=== PATIENT | male | born 1980 | race African-American/Black ===

== ENCOUNTER 2017-09-04 12:23 | Emergency (ER) | payer OTHER ==
[~2017-09-04] VITALS: Ht 193 cm; Wt 142.0 kg
[~2017-09-04 12:23] MED LIST: ACET-1256 PO; AZAT50TA17 PO; BUPR-83 PO; BUSP-8 PO; CAPS0.022 TOP; CLBPO15 TOP; CLON0.1T12 PO; DIPH50TA10 PO; DPRSCR15 TOP; FERR1TAB13 PO; MINEOIL PO; MULTTAB94 PO; PARO1TAB27 PO; PEGSOL PO; PNT500 PO; PRAZ5CAP2 PO; PRLSR20 PO; QUET1TAB34 PO; SULF800T23 PO
[2017-09-04 12:43] VITALS: TEMP 36.9; Ht 193 cm; Wt 142.0 kg
[2017-09-04] MEDS ORDERED: ONDANSETRON INJ 2 MG/ML 2 ML VIAL IV STA (13:06)
[2017-09-04] MEDS ORDERED: SODIUM CHLORIDE 0.9% 1000ML 1,000 ML IV STA (13:06)
[2017-09-04 13:52] LABS: BASO % 0.2 %; BASO ABS # 0.01 K/uL (0-0.2); EOS % 0.6 %; EOS ABS # 0.03 K/uL (0-0.5); HEMATOCRIT 37.1 % (42-52); HEMOGLOBIN 12.4 g/dL (14.0-18.0); IG# 0.01 K/uL (0.00-0.02); LYMPH % 9.9 %; MEAN CELL VOLUME 84.9 fL (80-100); MEAN CORPUSCULAR HEMOGLOBIN 28.4 pg (25-34); MEAN CORPUSCULAR HGB CONC 33.4 g/dl (32-36); MEAN PLATELET VOLUME 10.5 fL (7.4-10.4); MONO % 8.7 %; MONO ABS # 0.44 K/uL (0.11-0.59); NEUT % 80.4 %; NEUT ABS # 4.05 K/uL (1.4-6.5); PLATELET COUNT 203 K/uL (130-400); RED CELL DISTRIBUTION WIDTH CV 14.5 % (11.5-14.5); RED CELL DISTRIBUTION WIDTH SD 45.1 fL (36.4-46.3); WHITE BLOOD COUNT 5.04 K/uL (4.8-10.8)
[2017-09-04 14:09] LABS: ALBUMIN 3.4 gm/dl (3.4-5.0); CALCIUM 8.8 mg/dl (8.5-10.1); CREATININE 1.05 mg/dl (0.60-1.40); POTASSIUM 4.4 mmol/L (3.5-5.1)
--- NOTE | 2017-09-04 14:10 | DIAGNOSTIC IMAGING REPORT ---
ABDOMEN AND PELVIS CT WITHOUT CONTRAST CT DOSE: 999.85 mGy.cm HISTORY: Generalized abdominal pain. Crohn's disease. TECHNIQUE: Multiaxial CT images of the abdomen and pelvis were performed without contrast. A dose lowering technique was utilized adhering to the principles of ALARA. COMPARISON STUDY: Small bowel follow-through 08/15/2015. FINDINGS: The lung bases are clear. No pneumoperitoneum. No pneumatosis. Mild irregularity and sclerosis at the sacroiliac joints consistent with a mild sacroiliitis. Evidence for prior midline incision. There is a short segment of bowel located between the lower rectus abdominis muscles. However, there is no evidence for hernia. The unenhanced liver, spleen, gallbladder, pancreas, adrenal glands, gallbladder, and kidneys are unremarkable. No renal stones or hydronephrosis. Subcentimeter retroperitoneal and mesenteric lymph nodes do not meet CT criteria for pathologic involvement. Suboptimal evaluation for bowel pathology due to the lack of intravenous and oral contrast. However, no evidence for bowel obstruction. Normal bladder. Postoperative changes consistent with prior ileocecectomy. There is a side to end anastomosis identified at the distal ileum. The distal ileum both proximal and distal to the anastomosis with the colon is mildly thickened. The total length of bowel wall thickening is approximately 20 cm of distal ileum. Findings are consistent with an ileitis consistent with active Crohn's disease given the patient's history. No abscess or perforation identified. IMPRESSION: 1. Mild thickening involving the distal 20 cm of the ileum consistent with an ileitis given the patient's history of Crohn's disease. No perforation or abscess identified. Postoperative changes as described above. 2. No evidence for bowel obstruction. 3. No renal or ureteral stones. No hydronephrosis. 4. Mild bilateral sacroiliitis. Electronically signed by: Aleksandar Dawkins M.D. 09/04/2017 2:09 PM Dictated Date/Time: 09/04/2017 1:57 PM
[2017-09-04 14:12] LABS: TOTAL PROTEIN 7.4 gm/dl (6.4-8.2)
--- NOTE | 2017-09-04 14:30 | EMERGENCY ROOM VISIT NOTE ---
History Report prepared by Ada: Manuel Winters Under the Supervision of: Dr. Gal Curry D.O. First contact with patient: 12:48 Chief Complaint: VOMITING Stated Complaint: VOMITING BLOOD, NAUSEA, ABD PAIN History of Present Illness The patient is a 36 year old male with a history of Crohn's disease who presents to the Emergency Room from the [facility] with complaints of episodes of vomiting that started this morning. He states that he felt like his Crohn's was hyperactive a lot yesterday, with some left-sided abdominal pain. The patient says that about 2 hours after eating breakfast this morning, he vomited up all his food, and after he vomited everything, he kept dry heaving. He describes his vomit as bile mixed with stripes of blood. He says that he has been persistently nauseated ever since then, and was unable to really eat much of anything at lunch. The patient was then brought here for concerns of a bowel obstruction. He notes a history of a bowel obstruction. He says that he is still currently nauseated with some abdominal pain. He notes that this pain is what he gets periodically with his Crohn's. The patient adds that his last bowel movement was this morning and it was "in between normal and diarrhea". Source of History: patient Onset: This morning Position: other (global) Symptom Intensity: with stripes of blood Quality: other (vomiting) Timing: other (episodes) Associated Symptoms: + nausea, + abdominal pain Note: Associated symptoms: Not able to eat much. Review of Systems See HPI for pertinent positives & negatives. A total of 10 systems reviewed and were otherwise negative. Past Medical & Surgical Medical Problems: (1) Crohns disease Crohns disease No chronic problems Family History No pertinent family history Social History Smoking Status: Never Smoker Drug Use: none Marital Status: Occupation Status: other Current/Historical Medications Scheduled Acetaminophen (Tylenol), 1,000 MG PO BID Azathioprine (Imuran), 3 TABS PO DAILY Betamethasone Dip (Betamethasone Dipropionat), 1 APPLN TOP BID Bupropion (Wellbutrin), 100 MG PO BID Buspirone Hcl (Buspirone Hcl), 2 TAB PO BID Capsaicin (Capsaicin), 1 APPLN TOP TID Clobetasol Propionate (Clobetasol Propionate), 1 APPLN TOP BID Clonidine Hcl (Catapres), 1 TAB PO BID Diphenhydramine Hcl (Sleep) (Diphenhydramine Hcl), 4 TAB PO HS Ferrous Sulfate (Kp Ferrous Sulfate), 1 TAB PO TID Mesalamine (Pentasa), 500 MG PO QID Mineral Oil (Mineral Oil Heavy), 2 OZ PO BID Multiple Vitamin (Stress Formula), 1 TAB PO QD Omeprazole (Prilosec), 20 MG PO BID Paroxetine (Paxil), 20 MG PO BID Peg 8436-Qwa-Oet Bicarb-Sod Ch (Peg-3350/Electrolytes), 1 TBS PO DAILY Prazosin Hcl (Prazosin), 1 CAP PO HS Quetiapine Fumarate (Seroquel), 100 MG PO QD Quetiapine Fumarate (Seroquel), 200 MG PO QHS Sulfa/Trimethoprim (Bactrim Ds 800MG/160MG), 1 TAB PO BID Allergies Uncoded Allergies: wool (Allergy, Mild, HIVES, 01/27/17) NSAID (Adverse Reaction, Unknown, GI SYMPTOMS, 01/27/17) Physical Exam Vital Signs Date Time Temp Pulse Resp B/P (MAP) Pulse Ox O2 Delivery O2 Flow Rate FiO2 09/04/17 14:24 70 18 132/75 95 Room Air 09/04/17 13:37 71 18 118/66 98 Room Air 09/04/17 12:43 36.9 84 20 124/86 96 Room Air Physical Exam CONSTITUTIONAL/VITAL SIGNS: Reviewed / noted above. GENERAL: Non-toxic in appearance. INTEGUMENTARY: Warm, dry, and [place]. HEAD: Normocephalic. EYES: without scleral icterus or trauma. ENT/OROPHARYNX: clear and moist. LYMPHADENOPATHY/NECK: Is supple without lymphadenopathy or meningismus. RESPIRATORY: Lungs clear and equal. CARDIOVASCULAR: Regular rate and rhythm. GI/ABDOMEN: Soft. Mild tenderness to palpation of the left lower and right lower quadrants. No organomegaly or pulsatile mass. No rebound or guarding. Normal bowel sounds. EXTREMITIES: Warm and well perfused. BACK: No CVA tenderness. NEUROLOGICAL: Intact without focal deficits. PSYCHIATRIC: normal affect. MUSCULOSKELETAL: Normally developed with good muscle tone. Medical Decision & Procedures ER Provider Diagnostic Interpretation: CT results as stated below per my review and radiologist interpretation: ABDOMEN AND PELVIS CT WITHOUT CONTRAST CT DOSE: 999.85 mGy.cm HISTORY: Generalized abdominal pain. Crohn's disease. TECHNIQUE: Multiaxial CT images of the abdomen and pelvis were performed without contrast. A dose lowering technique was utilized adhering to the principles of ALARA. COMPARISON STUDY: Small bowel follow-through 08/15/2015. FINDINGS: The lung bases are clear. No pneumoperitoneum. No pneumatosis. Mild irregularity and sclerosis at the sacroiliac joints consistent with a mild sacroiliitis. Evidence for prior midline incision. There is a short segment of bowel located between the lower rectus abdominis muscles. However, there is no evidence for hernia. The unenhanced liver, spleen, gallbladder, pancreas, adrenal glands, gallbladder, and kidneys are unremarkable. No renal stones or hydronephrosis. Subcentimeter retroperitoneal and mesenteric lymph nodes do not meet CT criteria for pathologic involvement. Suboptimal evaluation for bowel pathology due to the lack of intravenous and oral contrast. However, no evidence for bowel obstruction. Normal bladder. Postoperative changes consistent with prior ileocecectomy. There is a side to end anastomosis identified at the distal ileum. The distal ileum both proximal and distal to the anastomosis with the colon is mildly thickened. The total length of bowel wall thickening is approximately 20 cm of distal ileum. Findings are consistent with an ileitis consistent with active Crohn's disease given the patient's history. No abscess or perforation identified. IMPRESSION: 1. Mild thickening involving the distal 20 cm of the ileum consistent with an ileitis given the patient's history of Crohn's disease. No perforation or abscess identified. Postoperative changes as described above. 2. No evidence for bowel obstruction. 3. No renal or ureteral stones. No hydronephrosis. 4. Mild bilateral sacroiliitis. Electronically signed by: Aleksandar Dawkins M.D. 09/04/2017 2:09 PM Dictated Date/Time: 09/04/2017 1:57 PM Laboratory Results 09/04/17 13:30 Red Blood Count 4.37, Mean Corpuscular Volume 84.9, Mean Corpuscular Hemoglobin 28.4, Mean Corpuscular Hemoglobin Concent 33.4, Mean Platelet Volume 10.5, Neutrophils (%) (Auto) 80.4, Lymphocytes (%) (Auto) 9.9, Monocytes (%) (Auto) 8.7, Eosinophils (%) (Auto) 0.6, Basophils (%) (Auto) 0.2, Neutrophils # (Auto) 4.05, Lymphocytes # (Auto) 0.50, Monocytes # (Auto) 0.44, Eosinophils # (Auto) 0.03, Basophils # (Auto) 0.01 09/04/17 13:30 Test 09/04/17 12:49 09/04/17 13:30 Urine Color YELLOW Urine Appearance CLEAR (CLEAR) Urine pH 8.0 (4.5-7.5) Urine Specific [place] 1.012 (1.000-1.030) Urine Protein NEG (NEG) Urine Glucose (UA) NEG (NEG) Urine Ketones NEG (NEG) Urine Occult Blood NEG (NEG) Urine Nitrite NEG (NEG) Urine Bilirubin NEG (NEG) Urine Urobilinogen NEG (NEG) Urine Leukocyte Esterase NEG (NEG) Urine WBC (Auto) 1-5 /hpf (0-5) Urine RBC (Auto) 0-4 /hpf (0-4) Urine Hyaline Casts (Auto) 0 /lpf (0-5) Urine Epithelial Cells (Auto) 0-5 /lpf (0-5) Urine Bacteria (Auto) NEG (NEG) White Blood Count 5.04 K/uL (4.8-10.8) Red Blood Count 4.37 M/uL (4.7-6.1) Hemoglobin 12.4 g/dL (14.0-18.0) Hematocrit 37.1 % (42-52) Mean Corpuscular Volume 84.9 fL (80-100) Mean Corpuscular Hemoglobin 28.4 pg (25-34) Mean Corpuscular Hemoglobin Concent 33.4 g/dl (32-36) Platelet Count 203 K/uL (130-400) Mean Platelet Volume 10.5 fL (7.4-10.4) Neutrophils (%) (Auto) 80.4 % Lymphocytes (%) (Auto) 9.9 % Monocytes (%) (Auto) 8.7 % Eosinophils (%) (Auto) 0.6 % Basophils (%) (Auto) 0.2 % Neutrophils # (Auto) 4.05 K/uL (1.4-6.5) Lymphocytes # (Auto) 0.50 K/uL (1.2-3.4) Monocytes # (Auto) 0.44 K/uL (0.11-0.59) Eosinophils # (Auto) 0.03 K/uL (0-0.5) Basophils # (Auto) 0.01 K/uL (0-0.2) RDW Standard Deviation 45.1 fL (36.4-46.3) RDW Coefficient of Variation 14.5 % (11.5-14.5) Immature Granulocyte % (Auto) 0.2 % Immature Granulocyte # (Auto) 0.01 K/uL (0.00-0.02) Anion Gap 7.0 mmol/L (3-11) Est Creatinine Clear Calc Drug Dose 151.2 ml/min Estimated GFR () 106.1 Estimated GFR (Non- 91.5 BUN/Creatinine Ratio 14.6 (10-20) Calcium Level 8.8 mg/dl (8.5-10.1) Total Bilirubin 0.4 mg/dl (0.2-1) Direct Bilirubin 0.1 mg/dl (0-0.2) Aspartate Amino Transf (AST/SGOT) 76 U/L (15-37) Alanine Aminotransferase (ALT/SGPT) 73 U/L (12-78) Alkaline Phosphatase 55 U/L (45-117) Total Protein 7.4 gm/dl (6.4-8.2) Albumin 3.4 gm/dl (3.4-5.0) Lipase 235 U/L (73-393) Laboratory results as stated above per my review. Medications Administered Medications (Trade) Dose Ordered Sig/Sea Route Start Time Stop Time Status Last Admin Dose Admin Sodium Chloride 1,000 ml @ 999 mls/hr Q1H1M STAT IV 09/04/17 13:06 09/04/17 14:06 DC 09/04/17 13:33 999 MLS/HR Ondansetron HCl (Zofran Inj) 4 mg NOW STAT IV 09/04/17 13:06 09/04/17 13:07 DC 09/04/17 13:33 4 MG ED Course 1249: Previous medical records were reviewed. The patient was evaluated in room C12B. A complete history and physical examination was performed. 1306: Zofran Inj 4 mg IV, NSS 1000 ml @ 999 mls/hr IV. Medical Decision Differential diagnosis: Etiologies such as gastroenteritis, food borne illness, infections, appendicitis , diverticulitis, inflammatory bowel disease, obstruction, GI bleed, biliary pathology, as well as others were entertained. This is a 36-year-old male who presents to the ED with a chief complaint of abdominal pain. The patient has a history of Crohn's disease. He reported some hyperactive bowels this morning. Around 9 or 10 AM he had some nausea and vomiting after breakfast. He states that his last bowel movement was soft this morning. His lunch she had pizza and did not have much of an appetite. He reports some lower abdominal discomfort. His vital signs are normal. His physical exam revealed some tenderness to the lower abdomen. Blood work including a CBC and complete metabolic panel were unremarkable. Urine did not show infection. CT scan of the abdomen pelvis reveals a mild ileitis but otherwise no significant abnormalities. The patient is currently on medication for his Crohn's disease. He was told the results of the test. He is felt to be stable for discharge and outpatient follow-up. Medication Reconcilliation Current Medication List: was personally reviewed by me Blood Pressure Screening Patient's blood pressure: Normal blood pressure Impression Primary Impression: Vomiting Additional Impressions: Abdominal pain, lower Ileitis, terminal Scribe Attestation The scribe's documentation has been prepared under my direction and personally reviewed by me in its entirety. I confirm that the note above accurately reflects all work, treatment, procedures, and medical decision making performed by me. Departure Information Referrals Demond Gandara M.D. (PCP) Patient Instructions My [facility] Additional Instructions CAT scan reveals a mild ileitis. This could be related to her Crohn's disease. Talk to your GI specialist about this. Continue your current medications. Blood work and urinalysis were normal. Follow-up with your doctor for further care and evaluation in 1-2 days. Return to the emergency department for worsening or new symptoms or any concerns. You have been examined and treated today on an emergency basis only. This is not a substitute for, or an effort to provide, complete comprehensive medical care. It is impossible to recognize and treat all injuries or illnesses in a single emergency department visit. It is therefore important that you follow up closely with your doctor. Call as soon as possible for an appointment. Problem Qualifiers
[2017-09-04] MEDS ORDERED: DICY20TA10 PO (14:39)
[2017-09-04] MEDS ORDERED: [UNRECOGNIZED DRUG - CODE] PO (14:39)
[2017-09-04] MEDS ORDERED: PRED-301 PO (14:39)
[2017-09-04 15:03] VITALS: BP 132/84; PULSE 77; O2SAT 100
== END 2017-09-04 15:02 | disposition home or self-care (01) ==
LOC: C.EDB 12:25 → C.EDC 15:02
DX: K50.00 Crohn's disease of small intestine without complications (principal); K92.0 Hematemesis; Z87.19 Personal history of other diseases of the digestive system; Z79.899 Other long term (current) drug therapy; Z91.048 Other nonmedicinal substance allergy status; Z88.6 Allergy status to analgesic agent

== ENCOUNTER 2017-09-10 02:08 | Emergency (ER) | payer OTHER ==
[~2017-09-10] VITALS: Ht 193 cm; Wt 138.0 kg
[~2017-09-10 02:08] MED LIST changes: +DICY20TA10 PO; +PRED-301 PO; +[UNRECOGNIZED DRUG - CODE] PO
[2017-09-10 02:11] VITALS: Ht 193 cm; Wt 138.0 kg
[2017-09-10] MEDS ORDERED: ACETAMINOPHEN 500 MG TAB PO STA ×2 (02:23→04:19)
[2017-09-10] MEDS ORDERED: SODIUM CHLORIDE 0.9% 1000ML 1,000 ML IV STA ×2 (02:23)
[2017-09-10 02:42] VITALS: O2SAT 99
[2017-09-10 02:48] LABS: BASO % 0.1 %; BASO ABS # 0.01 K/uL (0-0.2); EOS % 0.5 %; EOS ABS # 0.05 K/uL (0-0.5); HEMATOCRIT 37.7 % (42-52); HEMOGLOBIN 12.5 g/dL (14.0-18.0); IG# 0.05 K/uL (0.00-0.02); LYMPH % 9.3 %; LYMPH ABS # 0.86 K/uL (1.2-3.4); MEAN CELL VOLUME 83.8 fL (80-100); MEAN CORPUSCULAR HEMOGLOBIN 27.8 pg (25-34); MEAN CORPUSCULAR HGB CONC 33.2 g/dl (32-36); MEAN PLATELET VOLUME 10.9 fL (7.4-10.4); NEUT % 76.6 %; NEUT ABS # 7.09 K/uL (1.4-6.5); PLATELET COUNT 194 K/uL (130-400); RED CELL DISTRIBUTION WIDTH CV 14.2 % (11.5-14.5); RED CELL DISTRIBUTION WIDTH SD 43.4 fL (36.4-46.3); WHITE BLOOD COUNT 9.26 K/uL (4.8-10.8)
[2017-09-10] MEDS ORDERED: FERR324T4 PO (02:54)
[2017-09-10] MEDS ORDERED: POLY1POW47 PO (02:54)
[2017-09-10] MEDS ORDERED: NUTR-7 PO (02:54)
[2017-09-10] MEDS ORDERED: ALUM-30 PO (02:54)
[2017-09-10] MEDS ORDERED: QUET1TAB10 PO (02:54)
[2017-09-10] MEDS ORDERED: BISM262S27 PO (02:54)
[2017-09-10] MEDS ORDERED: SUCR1TAB29 PO (02:54)
[2017-09-10] MEDS ORDERED: VITA1CRE TD (02:54)
[2017-09-10] MEDS ORDERED: ONDA4TAB46 PO (02:54)
[2017-09-10] MEDS ORDERED: PROM25IN13 PO (02:54)
[2017-09-10] MEDS ORDERED: IMD/2 PO (02:54)
[2017-09-10 03:07] LABS: PTT PATIENT 25.7 SECONDS (21.0-31.0)
[2017-09-10 03:11] LABS: ALBUMIN 3.2 gm/dl (3.4-5.0); CALCIUM 8.6 mg/dl (8.5-10.1); CREATININE 1.3 mg/dl (0.60-1.40); POTASSIUM 3.7 mmol/L (3.5-5.1); TOTAL PROTEIN 7.6 gm/dl (6.4-8.2)
[2017-09-10 03:20] LABS: INFLUENZA B ANTIGEN Neg for Influ B (NEG)
[2017-09-10 03:28] VITALS: TEMP 38.1
[2017-09-10] MEDS ORDERED: OPTIRAY 320 IV PRN (04:00)
[2017-09-10] MEDS ORDERED: CIPROFLOXACIN 400MG / 200ML D5W IV STA (04:19)
[2017-09-10] MEDS ORDERED: METRONIDAZOLE 500MG / 100ML NSS IV STA (04:19)
--- NOTE | 2017-09-10 05:43 | EMERGENCY ROOM VISIT NOTE ---
History First contact with patient: 02:14 Chief Complaint: FEVER Stated Complaint: FEVER, MUSCLE ACHES History of Present Illness The patient is a 36 year old male who presents to the Emergency Room with complaints of fever, chills, body aches and lower abdominal pain for the past day who is a history of Crohn's disease with a history of bowel obstructions and surgery on the bowel. Patient was seen here a few days ago for nausea and vomiting with abdominal pain. CT scan showed ileitis. [facility] and this was to have bowel resection scheduled soon. Patient states is not on antibiotics. Patient denies chest pain, dyspnea, cough, congestion, urinary symptoms, sore throat, congestion. He is tolerating p.o. fluids but has a decreased appetite. Colonoscopy last year showed active Crohn' s per patient. Review of Systems An 10 system review of systems was completed with positives and pertinent negatives listed in the HPI. Past Medical/Surgical History Medical Problems: (1) Crohns disease Family History No pertinent family history Social History Smoking Status: Never Smoker Drug Use: none Marital Status: Occupation Status: other Current/Historical Medications Scheduled Alum [employer] Mag Hydrox-Simethicone (Mylanta), 1 DOSE PO TID Azathioprine (Imuran), 150 MG PO QAM Betamethasone Dip (Betamethasone Dipropionat), 1 APPLN TOP BID Bupropion (Wellbutrin), 100 MG PO BID Buspirone Hcl (Buspirone Hcl), 20 MG PO BID Clonidine Hcl (Catapres), 1 TAB PO BID Dicyclomine Hcl (Dicyclomine Hcl), 40 MG PO TID Diphenhydramine Hcl (Sleep) (Diphenhydramine Hcl), 100 MG PO HS Ferrous Sulfate (Ferrous Sulfate), 324 MG PO Q2D Lactase (Lac-Dose), 6,000 UNITS PO TID Mesalamine (Pentasa), 1,000 MG PO QID Mineral Oil (Mineral Oil Heavy), 30 ML PO BID Multiple Vitamin (Stress Formula), 1 TAB PO QAM Nutritional Supplements (Boost), 1 CAN PO TID Omeprazole (Prilosec), 20 MG PO BID Paroxetine (Paxil), 20 MG PO BID Polyethylene Glycol 3350 (Gavilax), 1 TBS PO QAM Prazosin Hcl (Prazosin), 5 MG PO HS Prednisone (Prednisone), 10 MG PO QAM Quetiapine Fumarate (Seroquel), 100 MG PO QAM Quetiapine Fumarate (Seroquel), 200 MG PO HS Vitamin E (Topical) (Vitamin E), 1 APPLN TD BID Scheduled PRN Acetaminophen (Tylenol), 1,000 MG PO TID PRN for Pain or Fever Bismuth Subsalicylate (Kaopectate), 30 ML PO QID PRN for PRN Loperamide Hcl (Imodium), 2 MG PO DIRECTED PRN for Diarrhea Ondansetron Hcl (Zofran), 4 MG PO TID PRN for Nausea Promethazine Hcl (Phenergan), 50 MG PO QID PRN for Nausea or Vomiting Sucralfate (Carafate), 1 GM PO TID PRN for PRN Physical Exam Vital Signs Date Time Temp Pulse Resp B/P (MAP) Pulse Ox O2 Delivery O2 Flow Rate FiO2 09/10/17 05:29 90 18 127/71 96 Room Air 09/10/17 03:28 38.1 95 18 151/62 96 Room Air 09/10/17 02:42 99 Room Air 09/10/17 02:11 39.0 100 19 127/60 96 Room Air Physical Exam VITALS: Vitals are noted on the nurse's note and reviewed by myself. Vital signs febrile. GENERAL: -[place] male in [facility], in no acute distress, nondiaphoretic , well-developed well-nourished. SKIN: The skin was without rashes, erythema, edema, or bruising. There is no tenting of the skin. Capillary reflex less than 2 seconds. HEAD: Normocephalic atraumatic. EARS: External auditory canals clear, tympanic membranes pearly lipscomb without erythema or effusion bilaterally. EYES: Pupils equal round and reactive to light and accommodation. Conjunctivae without injection, sclerae without icterus. Extraocular movements intact. NOSE: Patent, turbinates without inflammation or discharge. MOUTH: Mucous membranes mildly dry. Pharynx without erythema or exudate. Uvula midline. Airway patent. Tongue does not deviate. NECK: Supple without nuchal rigidity. No lymphadenopathy. No thyromegaly. Cervical spine is nontender. No JVD. HEART: Regular rate and rhythm without murmurs gallops or rubs. LUNGS: Clear to auscultation bilaterally without wheezes, rales or rhonchi. No retractions or accessory muscle use. ABDOMEN: Positive bowel sounds x 4. Normal tympanic percussion. Soft, tender to palpation left lower quadrant, without masses or organomegaly. Alva sign negative. No guarding or rebound tenderness. No CVA tenderness MUSCULOSKELETAL: No muscle atrophy, erythema, or edema noted. NEURO: Patient was alert and oriented to person place and time. Normal sensation to light and sharp touch. No focal neurological deficits. Medical Decision & Procedures Laboratory Results 09/10/17 02:37 Red Blood Count 4.50, Mean Corpuscular Volume 83.8, Mean Corpuscular Hemoglobin 27.8, Mean Corpuscular Hemoglobin Concent 33.2, Mean Platelet Volume 10.9, Neutrophils (%) (Auto) 76.6, Lymphocytes (%) (Auto) 9.3, Monocytes (%) (Auto) 13.0, Eosinophils (%) (Auto) 0.5, Basophils (%) (Auto) 0.1, Neutrophils # (Auto ) 7.09, Lymphocytes # (Auto) 0.86, Monocytes # (Auto) 1.20, Eosinophils # (Auto ) 0.05, Basophils # (Auto) 0.01 09/10/17 02:37 Test 09/10/17 02:30 09/10/17 02:37 09/10/17 02:40 09/10/17 04:00 Influenza Type A Antigen Neg for Influ A (NEG) Influenza Type B Antigen Neg for Influ B (NEG) White Blood Count 9.26 K/uL (4.8-10.8) Red Blood Count 4.50 M/uL (4.7-6.1) Hemoglobin 12.5 g/dL (14.0-18.0) Hematocrit 37.7 % (42-52) Mean Corpuscular Volume 83.8 fL (80-100) Mean Corpuscular Hemoglobin 27.8 pg (25-34) Mean Corpuscular Hemoglobin Concent 33.2 g/dl (32-36) Platelet Count 194 K/uL (130-400) Mean Platelet Volume 10.9 fL (7.4-10.4) Neutrophils (%) (Auto) 76.6 % Lymphocytes (%) (Auto) 9.3 % Monocytes (%) (Auto) 13.0 % Eosinophils (%) (Auto) 0.5 % Basophils (%) (Auto) 0.1 % Neutrophils # (Auto) 7.09 K/uL (1.4-6.5) Lymphocytes # (Auto) 0.86 K/uL (1.2-3.4) Monocytes # (Auto) 1.20 K/uL (0.11-0.59) Eosinophils # (Auto) 0.05 K/uL (0-0.5) Basophils # (Auto) 0.01 K/uL (0-0.2) RDW Standard Deviation 43.4 fL (36.4-46.3) RDW Coefficient of Variation 14.2 % (11.5-14.5) Immature Granulocyte % (Auto) 0.5 % Immature Granulocyte # (Auto) 0.05 K/uL (0.00-0.02) Erythrocyte Sedimentation Rate 27 mm/hr (0-14) Prothrombin Time 10.5 SECONDS (9.0-12.0) Prothromb Time International Ratio 1.0 (0.9-1.1) Activated Partial Thromboplast Time 25.7 SECONDS (21.0-31.0) Partial Thromboplastin Ratio 1.0 Anion Gap 7.0 mmol/L (3-11) Est Creatinine Clear Calc Drug Dose 120.3 ml/min Estimated GFR () 81.9 Estimated GFR (Non- 70.7 BUN/Creatinine Ratio 16.2 (10-20) Calcium Level 8.6 mg/dl (8.5-10.1) Total Bilirubin 0.5 mg/dl (0.2-1) Aspartate Amino Transf (AST/SGOT) 128 U/L (15-37) Alanine Aminotransferase (ALT/SGPT) 83 U/L (12-78) Alkaline Phosphatase 63 U/L (45-117) C-Reactive Protein 4.14 mg/dl (0-0.29) Total Protein 7.6 gm/dl (6.4-8.2) Albumin 3.2 gm/dl (3.4-5.0) Globulin 4.4 gm/dl (2.5-4.0) Albumin/Globulin Ratio 0.7 (0.9-2) Bedside Lactic Acid Venous 1.22 mmol/L (0.90-1.70) Medications Administered Medications (Trade) Dose Ordered Sig/Sea Route Start Time Stop Time Status Last Admin Dose Admin Sodium Chloride 1,000 ml @ 999 mls/hr Q1H1M STAT IV 09/10/17 02:23 09/10/17 03:23 DC 09/10/17 02:40 999 MLS/HR Sodium Chloride 1,000 ml @ 125 mls/hr Q8H STAT IV 09/10/17 02:23 09/10/17 10:22 09/10/17 02:40 125 MLS/HR Ciprofloxacin/ Dextrose (Cipro / D5W) 400 mg NOW STAT IV 09/10/17 04:19 09/10/17 04:20 DC 09/10/17 04:39 400 MG Metronidazole (Flagyl / Nss) 500 mg NOW STAT IV 09/10/17 04:19 09/10/17 04:20 DC 09/10/17 05:09 500 MG Acetaminophen (Tylenol Tab) 1,000 mg NOW STAT PO 09/10/17 04:19 09/10/17 04:20 DC 09/10/17 04:40 1,000 MG ED Course Prior records/ancillary studies reviewed. Triage Nursing notes reviewed. Additional history obtained from correction officers. The patient's history was concerning for fever with abdominal pain who has Crohn 's disease. Differential diagnosis: Etiologies such as Crohn's exacerbation, abscess, fistula, viral syndrome, otitis, pharyngitis, pneumonia, influenza, meningitis, urinary tract infection, sepsis, bacteremia, as well as others were entertained. Physical examination: Patient is alert and tolerating fluids ER treatment provided: IV fluids. Patient received Tylenol at midnight. On reassessment the patient felt better. Diagnostics interpreted by me: The labs revealed elevated inflammatory markers Negative lactic acid. Blood cultures pending. Stable anemia per chart review Imaging studies: Chest x-ray with no acute consolidation, pneumothorax free of my interpretation CT ABDOMEN & PELVIS With Contrast: Postoperative changes involving the bowel in the right lower quadrant. Appendix not visualized, likely surgically absent. There is suggestion of mild short segment wall thickening involving the distal ileum, possibly representing an infectious or inflammatory enteritis. No free or free fluid. No evidence of abscess. No bowel obstruction. Radiologist: Alexander Giles, DO ABDOMEN AND PELVIS CT WITHOUT CONTRAST CT DOSE: 999.85 mGy.cm HISTORY: Generalized abdominal pain. Crohn's disease. TECHNIQUE: Multiaxial CT images of the abdomen and pelvis were performed without contrast. A dose lowering technique was utilized adhering to the principles of ALARA. COMPARISON STUDY: Small bowel follow-through 08/15/2015. FINDINGS: The lung bases are clear. No pneumoperitoneum. No pneumatosis. Mild irregularity and sclerosis at the sacroiliac joints consistent with a mild sacroiliitis. Evidence for prior midline incision. There is a short segment of bowel located between the lower rectus abdominis muscles. However, there is no evidence for hernia. The unenhanced liver, spleen, gallbladder, pancreas, adrenal glands, gallbladder, and kidneys are unremarkable. No renal stones or hydronephrosis. Subcentimeter retroperitoneal and mesenteric lymph nodes do not meet CT criteria for pathologic involvement. Suboptimal evaluation for bowel pathology due to the lack of intravenous and oral contrast. However, no evidence for bowel obstruction. Normal bladder. Postoperative changes consistent with prior ileocecectomy. There is a side to end anastomosis identified at the distal ileum. The distal ileum both proximal and distal to the anastomosis with the colon is mildly thickened. The total length of bowel wall thickening is approximately 20 cm of distal ileum. Findings are consistent with an ileitis consistent with active Crohn's disease given the patient's history. No abscess or perforation identified. IMPRESSION: 1. Mild thickening involving the distal 20 cm of the ileum consistent with an ileitis given the patient's history of Crohn's disease. No perforation or abscess identified. Postoperative changes as described above. 2. No evidence for bowel obstruction. 3. No renal or ureteral stones. No hydronephrosis. 4. Mild bilateral sacroiliitis. Electronically signed by: Aleksandar Dawkins M.D. Consultation: A consultation was placed with []. The case was discussed and diagnostics were reviewed. The patient was evaluated in the ER for further treatment. This appears to be consistent with Crohn's exacerbation with concerns for infection. Patient was offered admission and refused. He understands the risks of worsening infection and/or . He states he would like to go back to the residential for antibiotic treatment there. Patient signed out AMA. Patient was advised to take the Cipro and Flagyl as directed. Blood cultures pending. Chest x-ray was negative for infection. Flu was negative. There is no leukocytosis but he is on immunosuppressive medications. Patient was strongly encouraged to return to the ER immediately for further evaluation treatment, worsening sinus symptoms or as needed. By the evaluation outlined above emergent etiologies such as otitis, pharyngitis, pneumonia, meningitis, urinary tract infection, sepsis, bacteremia, as well as others were deemed relatively unlikely. The pt informed about the findings as listed above. All questions were answered and pleased with the treatment. Return instructions were outlined and the patient was discharged in stable condition. Outpatient prescription management: Cipro Flagyl Referral: The patient was referred back to their primary care physician for follow-up today for a recheck of the current condition. Case reviewed with my attending. The chart was completed utilizing [employer] voice recognition software. Grammatical errors, random word insertions, pronoun errors, and incomplete sentences are an occassional consequence of this system due to software limitations, ambient noise, and hardware issues. Any formal questions or concerns about the content, text, or information contained within the body of this dictation should be directly addressed to the physician recycling assistant for clarification. Medical Decision As above Medication Reconcilliation Current Medication List: was personally reviewed by me Blood Pressure Screening Patient's blood pressure: Normal blood pressure Impression Primary Impression: Exacerbation of Crohn's disease Departure Information Dispostion Against Medical Advice Condition FAIR Referrals Demond Gandara M.D. (PCP) Patient Instructions My [facility] Additional Instructions DO NOT drive, drink alcohol, operate machinery, or perform dangerous activities today. You were given medications in the ER that can affect your ability to safely function or operate a vehicle. You are leaving AGAINST MEDICAL ADVICE. You are at risk for worsening infection and/or . I strongly recommend that you see the residential doctor today. Zofran 4 m tablet every 6 hours as needed for nausea or vomiting. Ciprofloxacin(Cipro) 500mg: Take one pill twice daily for 14 days for your bowel infection. All antibiotics can cause diarrhea. If this occurs and you feel worse or it does not resolve in 1-2 days follow up with your doctor or return to the Emergency Department as this could be signs of serious underlying problems. If you experience any pain in your tendons or any tendon injury return to the ER for re-evaluation. Any medication can cause an allergic reaction, stop the pills immediately and return to the ER for rash, hives, breathing difficulties, or swelling. Metronidazole(Flagyl) 500mg: Take one pill 3 times daily for 14 days for your bowel infection. DO NOT drink alcohol or take alcohol containing products with this medication. Any medication can cause an allergic reaction, stop the pills immediately and return to the ER for rash, hives, breathing difficulties, or swelling. Acetaminophen(Tylenol) may be used for fever or pain. Use 1000mg every six hours as needed. Avoid using more than 3000mg in a 24 hour period. Rest and drink plenty of fluids as tolerated. Slow sips of water or sports drinks are recommended instead of large amounts all at once. Continue current medications. Once your stomach is settled start with a clear liquid diet (jello, soup broth, etc.) and then advance as tolerated. You should avoid full, heavy meals for about 24 hrs from the time your symptoms resolved. Return to the ER immediately for worsening or persistent abdominal pain, vomiting, fevers, chest pains, difficulty breathing, black or bloody stools, worsening of your condition, or as needed. Follow up with your primary physician/coloring checker in 2-3 days for a recheck of your current condition. Problem Qualifiers Primary Impression: Exacerbation of Crohn's disease Digestive disease complication type: without complication Qualified Codes: K50.90 - Crohn's disease, unspecified, without complications
[2017-09-10] MEDS ORDERED: CIPR1TAB10 PO (05:45)
[2017-09-10] MEDS ORDERED: METR-163 PO (05:45)
[2017-09-10 06:13] VITALS: BP 126/72; PULSE 59; O2SAT 99
--- NOTE | 2017-09-10 07:09 | DIAGNOSTIC IMAGING REPORT ---
CHEST ONE VIEW PORTABLE HISTORY: fever COMPARISON: None. FINDINGS: The lungs are clear. Cardiac silhouette is normal in size. No pleural effusions. No pneumothorax. IMPRESSION: No acute process. Electronically signed by: Aleksandar Dawkins M.D. 09/10/2017 7:08 AM Dictated Date/Time: 09/10/2017 7:07 AM
--- NOTE | 2017-09-10 08:27 | DIAGNOSTIC IMAGING REPORT ---
ABDOMEN AND PELVIS CT WITH IV CONTRAST CT DOSE: 1026.39 mGy.cm HISTORY: Lower abdominal pain. Fever. Crohn's disease. TECHNIQUE: Multiaxial CT images of the abdomen and pelvis were performed following the use of intravenous contrast. A dose lowering technique was utilized adhering to the principles of ALARA. COMPARISON STUDY: Abdomen and pelvis CT 09/04/2017 FINDINGS: The lung bases are clear. No pneumoperitoneum. No pneumatosis. Mild irregularity and sclerosis at the sacroiliac joints consistent with a mild sacroiliitis. Evidence for prior midline incision. There is a short segment of bowel located between the lower rectus abdominis muscles. However, there is no evidence for hernia. The unenhanced liver, spleen, gallbladder, pancreas, adrenal glands, gallbladder, and kidneys are unremarkable. No renal stones or hydronephrosis. Subcentimeter retroperitoneal and mesenteric lymph nodes do not meet CT criteria for pathologic involvement. No evidence for bowel obstruction. Normal bladder. Postoperative changes consistent with prior ileocecectomy. There is a side to end anastomosis identified at the distal ileum. The distal ileum both proximal and distal to the anastomosis with the colon is mildly thickened. The total length of bowel wall thickening is approximately 15 cm of distal ileum. Findings are consistent with an ileitis consistent with active Crohn's disease given the patient's history. The bowel wall thickening is slightly improved. No abscess or perforation identified. IMPRESSION: 1. Mild thickening involving the distal 15 cm of the ileum consistent with an ileitis given the patient's history of Crohn's disease. This has slightly improved. No perforation or abscess identified. Postoperative changes as described above. 2. No evidence for bowel obstruction. 3. No renal or ureteral stones. No hydronephrosis. 4. Mild bilateral sacroiliitis. Electronically signed by: Aleksandar Dawkins M.D. 09/10/2017 8:25 AM Dictated Date/Time: 09/10/2017 8:21 AM
== END 2017-09-10 06:10 | disposition left against medical advice (07) ==
LOC: C.EDB 02:10
DX: K50.90 Crohn's disease, unspecified, without complications (principal)